=== PATIENT | female | born 1945 | race Caucasian/White ===

== ENCOUNTER 2024-08-03 13:37 | Emergency (ER) | payer MEDICARE, BC ==
[~2024-08-03] VITALS: Ht 167.6 cm; Wt 61.8 kg
[2024-08-03 13:44] VITALS: BP 148/54; PULSE 67; RESP 18; O2SAT 99
--- NOTE | 2024-08-03 14:17 | Physician Documentation ---
History of Present Illness ~ Chief Complaint: Eye Pain Stated Complaint: BLOOD IN EYE SWEATING DIZZINESS Time Seen by MD: 14:22 HPI This is a 78-year-old female who presents with approximately 1 hour of blood in her eye with foreign body sensation to right medial eye, she reports she was doing her hair when she noticed an area of blood and redness in her eye. Reports she now feels a slight discomfort to the area described as itchiness. Reports no known injury to the eye though has had some episodes of coughing due to allergies. Patient reports he does not take blood thinners or aspirin. Reports no acute vision changes. Medication Reconciliation Allergies: Coded Allergies: No Known Allergies (Unverified , 08/03/24) Past Medical History Past Medical History: No Pertinent History Review of Systems ROS Redness and discomfort to right eye as stated above in the HPI, otherwise all systems are reviewed and negative. Physical Exam Vital Signs: Temperature: 97.9, Source: Temporal, Heart Rate: 67, Respiratory Rate: 18, BP: 148/54, Pulse Oximetry: 99, Weight: 61.800 Oxygen Flow Rate: 0 Physical Exam VITALS: Reviewed and as above. GENERAL: Alert, nontoxic appearing, no apparent distress. HEENT: PERRLA, EOMI without pain, redness consistent with subconjunctival hemorrhage to the lower medial quadrant of right eye, fluorescein exam without focal fluorescein uptake, no evidence of retained foreign body, no blood in cornea or iris. No Gali sign. No periorbital erythema or swelling RESPIRATORY: No increased work of breathing, no respiratory distress, speaking in full clear sentences Progress Results/Orders Results/Orders Orders - MIAN MACKEY Eye Procedure (08/03/24 14:17) Completed Orders - MIAN MACKEY Proparacaine Ophth Solution (Alcaine Oph (08/03/24 14:20) Vital Signs 08/03/24 08/03/24 13:44 15:11 Temp 97.9 97.9 Pulse 67 Resp 18 B/P (MAP) 148/54 Pulse Ox 99 O2 Flow Rate 0 Medical Decision Making Findings This 78-year-old female presented with redness and discomfort to her right eye, physical exam was consistent with subconjunctival tidal hemorrhage, fluorescein exam did not demonstrate evidence of focal fluorescein uptake to suggest abrasion and there was no Gali sign to suggest globe rupture, redness was limited to one quadrant of the eye and did not involve the cornea. There was no evidence of foreign body. Remainder of physical exam benign and patient is otherwise well-appearing. Patient provided home care instructions and return to care precautions which patient verbalized understanding of. 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 Eye Diff. Dx: Considerations: Include: [place], Conjuctivits-allergic, Conjuctivitis-bacterial, Conjuctivits-chlamydial, Conjuctivitis-viral, Corneal abrasion, Corneal laceration, Corneal ulceration, Foreign body-corneal, Foreign body-intraocular, Foreign body-lid, Glaucoma, Globe rupture, Hordeolum, Orbital cellulitis, Periobital cellulitis Departure Disposition: HOME / SELF CARE / HOMELESS Impression: Primary Impression: Subconjunctival hemorrhage of right eye Condition: Improved Discharge Instructions: Subconjunctival Hemorrhage Additional Instructions: Please follow up with your eye doctor today or tomorrow. Please also follow up with your primary care provider in the next few days. Please return to the emergency department for any new or worsening concerning symptoms including but not limited to changes in your vision, or blood covering the center of your eye (pupil). Referrals: NO PRIMARY CARE PROVIDER (PCP) Education Educated: Patient Educated regarding: diagnosis, treatment, prognosis, need for follow up Additional Comment Medical Screen Exam History: This is a 78-year-old female who presents with proximally 1 hour of eye pain and foreign body sensation to right medial eye, she reports she was doing her hair when she noticed an area of blood and redness in her eye. Exam: VITALS: Reviewed and as above. GENERAL: Alert, nontoxic appearing, no apparent distress. HEENT: PERRLA, EOMI without pain, subconjunctival hemorrhage to lower medial quadrant of right eye RESPIRATORY: No increased work of breathing, no respiratory distress, speaking in full clear sentences MSE performed in triage and patient returned to ED lobby by nursing staff The note accurately reflects work and decisions made by me.OLIVER Jaime 08/03/24 14:17 Signature Scribe Signature: No scribe Attestation: The note accurately reflects work and decisions made by me.OLIVER Jaime 08/04/24 01:58 MIAN MACKEY Aug 03, 2024 14:17
[2024-08-03] MEDS: proparacaine 0.5% ophthalmic drops 15ml RIGHTEYE ONE (14:42)
[2024-08-03 15:11] VITALS: TEMP 97.9
== END 2024-08-03 15:12 | disposition home or self-care (01) ==
LOC: ER 13:39
DX: H11.31 Conjunctival hemorrhage, right eye (principal); R05.9 Cough, unspecified
CPT/HCPCS: 99283